=== PATIENT | male | born 1975 | race Caucasian/White ===

== ENCOUNTER 2019-03-01 09:16 | Day surgery (SDC) | payer BC, SELFPAY ==
[2019-03-01] VITALS (10 sets, daily range): BP systolic 108–150; BP diastolic 62–81; PULSE 78–94; RESP 18–20; TEMP 36.2–36.9; O2SAT 94–97; BMI 34.0
[2019-03-01 09:18] LABS: Basophils # 0.1 K/mm3 (0-0.2); Basophils % 0.5 % (0.1-2.0); Eosinophils # 0.3 K/mm3 (0.0-0.4); Eosinophils % 2.5 % (0.1-12.0); Hematocrit 41.8 % (42.0-52.0); Hemoglobin 14.4 g/dL (14.1-18.0); Lymphocytes # 2.3 K/mm3 (0.7-4.5); Lymphocytes % 21.8 % (10-50); Mean Corpuscular HGB Conc 34.4 g/dL (31.8-35.4); Mean Corpuscular Hemoglobin 30.3 pg (27.0-31.2); Mean Corpuscular Volume 87.9 fl (80-94); Monocytes # 0.6 K/mm3 (0.1-1.0); Monocytes % 5.6 % (1.7-9.3); Neutrophils # 7.3 K/mm3 (1.8-7.8); Neutrophils % 69.6 % (37.0-80.0); Platelet Count 238 K/mm3 (142-424); Red Blood Count 4.76 M/mm3 (4.60-6.20); Red Cell Distribution Width 13.3 % (11.5-17.5); White Blood Count 10.5 K/mm3 (4.8-10.8)
--- NOTE | 2019-03-01 10:18 | P.PN_ITS ---
[facility] Anesthesia Checklist - Patient Identification Patient Identification: Arm Band, Verbal (Name & ) - Structural Data Admitted From: Inpatient Planned Operative Procedure/s: Abdominal wall abscess I&D Consent for Planned Operative Procedure(s) Verified: Yes Verified Documents: Surgical Consent, History and Physical - NPO Status Verified Time NPO: 00:00 - Additional verifications Anesthesia Reactions: No - Airway Assessment C-Spine Mobility Assessed: Yes TMJ Mobility Assessed: Yes Dentition: Poor Dentition (Missing teeth, broken teeth) - Neurological Assessment Level of Consciousness: Awake Hx Seizures: No Numbness or tingling in extremities: No - Anesthesia Plan Anesthesia Risk discussed: Yes Anesthesia Plan: Verified ASA Class: II Anesthesia Type: General [facility] History I have reviewed the patient's past medical history: Yes Medical History: Reports:: Gastroesophageal Reflux Disease(GERD), Hypertension Denies:: Cancer, Diabetes Mellitus Type 1, Diabetes Mellitus Type 2, Internal Pacemaker, MRSA, Seizures *Have you ever received a pneumonia vaccine?: No *Have you received a flu vaccine this season?: No Other Medical History: Reports: Other (obesity). Denies: Blood Transfusion Reaction Other Surgeries: Yes: Hernia Repair, Other. No: Pacemaker Amputation: No Fractures: Yes - *Social History Smoking Status: Current every day smoker Tobacco Type: cigarettes # Packs/Day (cigarettes): 1 Alcohol Intake: never Alcohol Intake Frequency:: a few times a week *Occupational Status:: employed Housing: house Household Members: spouse Family Hx:: Adopted, Diabetes
--- NOTE | 2019-03-01 10:30 | P.PN_ITS ---
[facility] Anesthesia Checklist - Patient Identification Patient Identification: Arm Band, Verbal (Name & ) - Structural Data Admitted From: Inpatient Planned Operative Procedure/s: Abdominal wall abscess I&D Consent for Planned Operative Procedure(s) Verified: Yes Verified Documents: Surgical Consent, History and Physical - NPO Status Verified Time NPO: 00:00 - Additional verifications Anesthesia Reactions: No - Airway Assessment C-Spine Mobility Assessed: Yes TMJ Mobility Assessed: Yes Dentition: Poor Dentition (Missing teeth, broken teeth) - Neurological Assessment Level of Consciousness: Awake Hx Seizures: No Numbness or tingling in extremities: No - Anesthesia Plan Anesthesia Risk discussed: Yes Anesthesia Plan: Verified ASA Class: II Anesthesia Type: General [facility] History I have reviewed the patient's past medical history: Yes Medical History: Reports:: Gastroesophageal Reflux Disease(GERD), Hypertension Denies:: Cancer, Diabetes Mellitus Type 1, Diabetes Mellitus Type 2, Internal Pacemaker, MRSA, Seizures *Have you ever received a pneumonia vaccine?: No *Have you received a flu vaccine this season?: No Other Medical History: Reports: Other (obesity). Denies: Blood Transfusion Reaction Other Surgeries: Yes: Hernia Repair, Other. No: Pacemaker Amputation: No Fractures: Yes - *Social History Smoking Status: Current every day smoker Tobacco Type: cigarettes # Packs/Day (cigarettes): 1 Alcohol Intake: never Alcohol Intake Frequency:: a few times a week *Occupational Status:: employed Housing: house Household Members: spouse Family Hx:: Adopted, Diabetes
[2019-03-01 11:26] LABS: Anion Gap 15.8 mEq/L (5-15); Blood Urea Nitrogen 14 mg/dL (7-18); Calcium 9.4 mg/dL (8.5-10.1); Carbon Dioxide 27 mmol/L (21.0-32.0); Chloride 102 mmol/L (98-107); Creatinine Clearance Estimated 160 mL/min (50-200); Estimated Glomerular Filt Rate 92 ml/min (>60); GFR (African American) 111 ML/MIN (>60); Glucose 99 mg/dL (74-106); Potassium 4.8 mmoL/L (3.5-5.1); Sodium 140 mmol/L (136-145)
--- NOTE | 2019-03-01 11:58 | HMH.OPNOTE ---
Date of procedure: 03/01/19 Pre-op Diagnosis:: Left abdominal flank soft tissue infection with abscess Post-op Diagnosis:: Same Procedure performed:: Incision and drainage of complex left abdominal flank abscess with debridement of skin and subcutaneous tissues Surgeon:: Marty Smith MD BRAKE LINING MAKER:: Victor Manuel Buckley Anesthesia: LMA Estimated blood loss (mL): 25 Clinical Note:: Patient is a 43-year-old white male from [place], [place]. He states that for at least a couple of weeks he has had a knot on the left lower abdomen. He had tried to squeeze the area and did drain some foul-smelling whitish material. However it then became significantly more inflamed and tender progressively over the past week. He had presented to the urgent treatment center yesterday evening at which time he was diagnosed with abdominal wall abscess. Surgery was contacted given the fact that it likely would require incision and drainage. Plan was made for early outpatient evaluation the following morning. He was seen in the office this morning and had an area measuring approximately 15 cm of erythema with central induration without fluctuance. Plan was made for incision and drainage and debridement in the operating room. Operative findings:: This was likely consistent with abscessed sebaceous cyst. There was some caseous material within an abscess pocket with some fluid and necrotic subcutaneous tissues. Operative note:: Consent was obtained and patient was taken to the operating room. He was positioned in a supine position and general anesthesia was induced via LMA. The area was prepped and draped in the standard surgical fashion. In the central area of strongest erythema with induration 18-gauge needle was inserted. Approximately 1 cc of thick purulent material was aspirated. Incision was made at the site and there was some caseous necrotic material which exuded from the wound. Wound was probed and there was a generous pocket. However, there was not a significant amount of pus remaining. There was some tracking and undermining. The wound was opened to allow for evacuation of the purulence and necrotic material. Overlying skin and subcutaneous tissue was debrided in a limited fashion using electrocautery. Please note the cultures had been obtained during the initial incision and with the aspirated fluid. The wound was thoroughly irrigated. Hemostasis was achieved with limited use of electrocautery. Local anesthetic was infiltrated. Wound was packed with a saline moistened Kerlix gauze and covered with clean dry sterile dressing. Condition: stable Disposition: PACU Specimens:: Debrided tissue Complications:: None immediately apparent
--- NOTE | 2019-03-01 12:01 | HMH.ANESI ---
[facility] Anesthesia Record Part I Intake, IV Amount: 250 Estimated blood loss (mL): 5 Urine output (mL): 0 Blood Products used (#): none Blood Pressure: 150/81 SaO2: 96 Pulse Rate: 94 Respiratory Rate: 18 Temperature: 97.9 F Patient is:: Drowsy, Nasal O2, Stable Stable to PACU at:: 11:57
--- NOTE | 2019-03-01 12:03 | P.OP_ITS ---
Date of procedure: 03/01/19 Pre-op Diagnosis:: Left abdominal flank soft tissue infection with abscess Post-op Diagnosis:: Same Procedure performed:: Incision and drainage of complex left abdominal flank abscess with debridement of skin and subcutaneous tissues Surgeon:: Marty Smith MD PATTERN KEEPER:: Victor Manuel Buckley Anesthesia: LMA Estimated blood loss (mL): 25 Clinical Note:: Patient is a 43-year-old white male from [place], [place]. He states that for at least a couple of weeks he has had a knot on the left lower abdomen. He had tried to squeeze the area and did drain some foul-smelling whitish material. However it then became significantly more inflamed and tender progressively over the past week. He had presented to the urgent treatment center yesterday evening at which time he was diagnosed with abdominal wall abscess. Surgery was contacted given the fact that it likely would require incision and drainage. Plan was made for early outpatient evaluation the following morning. He was seen in the office this morning and had an area measuring approximately 15 cm of erythema with central induration without fluctuance. Plan was made for incision and drainage and debridement in the operating room. Operative findings:: This was likely consistent with abscessed sebaceous cyst. There was some caseous material within an abscess pocket with some fluid and necrotic subcutaneous tissues. Operative note:: Consent was obtained and patient was taken to the operating room. He was p ositioned in a supine position and general anesthesia was induced via LMA. The area was prepped and draped in the standard surgical fashion. In the central area of strongest erythema with induration 18-gauge needle was inserted. Approximately 1 cc of thick purulent material was aspirated. Incision was made at the site and there was some caseous necrotic material which exuded from the wound. Wound was probed and there was a generous pocket. However, there was not a significant amount of pus remaining. There was some tracking and undermining. The wound was opened to allow for evacuation of the purulence and necrotic material. Overlying skin and subcutaneous tissue was debrided in a limited fashion using electrocautery. Please note the cultures had been obtained during the initial incision and with the aspirated fluid. The wound was thoroughly irrigated. Hemostasis was achieved with limited use of electrocautery. Local anesthetic was infiltrated. Wound was packed with a sali ne moistened Kerlix gauze and covered with clean dry sterile dressing. Condition: stable Disposition: PACU Specimens:: Debrided tissue Complications:: None immediately apparent
--- NOTE | 2019-03-01 12:03 | P.PN_ITS ---
[facility] Anesthesia Record Part II Discharge Time: 12:27 Destination: Surgical Day Care (OP Surgery) PACU nurse assessment reviewed?: Yes Patient Condition:: Good Anesthesia Complications:: None Swallowing reflex intact?: Yes Cyanosis?: No
== END 2019-03-01 13:00 | disposition home or self-care (01) ==
LOC: OUTP 09:16
PROVIDERS: Visit Provider Surgery
PROC: (CPT 10060; principal; 2019-03-01 10:30)
DX: L02.212 Cutaneous abscess of back [any part, except buttock and flank] (principal)
CPT/HCPCS: 10060; 11000; 36415; 80048; 85025; 87070; 87075; 87205; 96374; J2405

== ENCOUNTER 2019-03-02 13:25 | Outpatient (CLI) | payer BC, SELFPAY ==
--- NOTE | 2019-03-02 16:28 | PC.NURSE ---
1335-REMOVED DRESSING AND PACKING FROM WOUND USING NS TO HELP MOISTEN PACKING WHEN REMOVING. IRRIGATED WOUND WITH NS. WOUND BED RED AND MOIST. REPACKED WITH NS MOISTEND KERLEX, COVERED WITH 2 DRY 4X4 GAUZES AND ABD PAD FOLDED IN HALF. TAPED INTO PLACE.
== END 2019-03-02 14:15 | disposition home or self-care (01) ==
LOC: INF 13:42
PROVIDERS: Visit Provider Surgery
DX: L02.91 Cutaneous abscess, unspecified (principal)
CPT/HCPCS: G0463

== ENCOUNTER 2019-03-03 10:30 | Outpatient (CLI) | payer BC, SELFPAY ==
--- NOTE | 2019-03-03 16:25 | PC.NURSE ---
1150 - INSTRUCTED TO CONTINUE COMING IN DAILY FOR WET TO DRY DRESSING CHANGES UNTIL INSURANCE APPROVES WOUND VAC. INSTRUCTED THAT WOUND VAC COMPANY WOULD CONTACT HIM ONCE APPROVED AND SEND SUPPLIES TO HIS HOUSE. INSTRUCTED TO BRING SUPPLIES TO HOSPITAL ONCE HE GETS THEM AND DUE FOR NEXT DRESSING CHANGE AND WOUND VAC COULD BE APPLIED.
== END 2019-03-03 12:10 | disposition home or self-care (01) ==
LOC: INF 10:33
PROVIDERS: Visit Provider Surgery
DX: L02.91 Cutaneous abscess, unspecified (principal); Z48.01 Encounter for change or removal of surgical wound dressing
CPT/HCPCS: G0463

== ENCOUNTER → 2019-03-04 11:24 | Outpatient (CLI) | payer BC, SELFPAY ==
[2019-03-04 11:48] VITALS: BP 116/68; PULSE 75; RESP 16; TEMP 36.6; O2SAT 98; BMI 36.0
[2019-03-04 12:07] VITALS: BP 121/70; PULSE 82; RESP 16; TEMP 36.6; O2SAT 98
== END ==
PROVIDERS: Visit Provider Surgery
DX: L02.91 Cutaneous abscess, unspecified (principal); Z48.01 Encounter for change or removal of surgical wound dressing
CPT/HCPCS: G0463

== ENCOUNTER → 2019-03-05 10:19 | Outpatient (CLI) | payer BC, SELFPAY ==
[2019-03-05 10:38] VITALS: BP 137/88; PULSE 88; RESP 16; TEMP 36.8; O2SAT 99; BMI 36.5
[2019-03-05 10:50] VITALS: BP 120/76; PULSE 80; RESP 18; TEMP 36.8; O2SAT 99
== END ==
PROVIDERS: PCP Family Medicine; Visit Provider Surgery
DX: Z48.01 Encounter for change or removal of surgical wound dressing (principal); L02.91 Cutaneous abscess, unspecified
CPT/HCPCS: G0463

== ENCOUNTER 2019-03-06 09:55 | Outpatient (CLI) | payer BC, SELFPAY | END 2019-03-06 10:59 | disposition home or self-care (01) | LOC: INF 10:01 | PROVIDERS: Visit Provider Surgery | DX: L02.91 Cutaneous abscess, unspecified (principal); Z48.01 Encounter for change or removal of surgical wound dressing | CPT/HCPCS: G0463 ==

== ENCOUNTER 2019-03-09 13:51 | Outpatient (CLI) | payer BC, SELFPAY | END 2019-03-09 14:50 | disposition home or self-care (01) | LOC: INF 13:59 | PROVIDERS: Visit Provider Surgery | DX: L02.91 Cutaneous abscess, unspecified (principal); Z48.01 Encounter for change or removal of surgical wound dressing | CPT/HCPCS: G0463 ==

== ENCOUNTER 2019-03-12 09:44 | Outpatient (CLI) | payer BC, SELFPAY ==
[2019-03-12 09:55] VITALS: BP 125/83; PULSE 79; RESP 20; O2SAT 94
[2019-03-12 09:58] VITALS: BMI 37.0
--- NOTE | 2019-03-12 13:55 | PC.NURSE ---
Addendum entered by Gem Raymond RN 03/12/19 14:07: Late entry Original Note: Dressing to wound vac removed, sterile saline applied to help remove sponge from wound bed. Pt cried, yelled, kicked and thrashed about while trying to remove. Wound was approx 5cm x 2cm and approx 1-1.5cm in depth. Bed is beefy pink with small amount of serosanguineous drainage. No odor noted. Wound cleaned w/sterile saline and new dressing applied, wound vac set to 120. Pt continued to yell and kick during cleaning wound and applying dressing. Harley Samuel RN and pt spouse at bedside trying to sooth patient during dressing change. Jo Moses RN along with Harley Samuel RN and pt spouse at bedside to help prevent pt from inadvertently kicking/hitting staff during procedure. Pt states he premedicated with prescribed prn pain meds but he did not tolerate procedure well.
== END 2019-03-12 10:35 | disposition home or self-care (01) ==
PROVIDERS: PCP Family Medicine; Visit Provider Surgery
DX: L02.91 Cutaneous abscess, unspecified (principal); Z48.01 Encounter for change or removal of surgical wound dressing
CPT/HCPCS: G0463

== ENCOUNTER 2019-03-16 09:20 | Outpatient (CLI) | payer BC, SELFPAY | END 2019-03-16 11:20 | disposition home or self-care (01) | LOC: INF 09:31 | PROVIDERS: Visit Provider Surgery | DX: Z48.01 Encounter for change or removal of surgical wound dressing (principal); L02.91 Cutaneous abscess, unspecified | CPT/HCPCS: G0463 ==

== ENCOUNTER 2023-06-30 18:22 | Emergency (ER) | payer BC, SELFPAY ==
[2023-06-30] VITALS (7 sets, daily range): BP systolic 110–142; BP diastolic 64–94; PULSE 60–70; RESP 16–18; TEMP 36.5–36.7; O2SAT 95–100; BMI 35.5; BMI 35.6
--- NOTE | 2023-06-30 18:47 | EXP.UTC ---
Discharge Plan Disposition Patient Disposition: Still a Patient Condition: Fair Prescriptions Prescriptions: No Action losartan 100 mg tablet 100 mg PO DAILY famotidine 20 mg tablet 20 mg PO DAILY cephalexin 500 MG capsule 500 mg PO TID Qty: 30 0RF Referrals Follow up/Referrals: Consuelo Shaw DO [Primary Care Provider] - See instructions Discharge ED Provider: Ld Brewer [facility] HPI General Stated complaint: h/a, cough, chest congestion Mode of Arrival: Ambulatory Source of Information: Patient Limitations: No Limitations Time Seen by Provider: 06/30/23 18:47 Description of Symptoms (Recalled from Triage Doc. by RN): Patient states he has a massive headache, double vision, ringing in ears, tightness in chest, dry cough, short of breath and just doesn't feel right at all for about 2-3 weeks. HEENT Symptoms (Recalled from RN notes): Yes Resp Symptoms (Recalled from RN notes): No Skin Symptoms (Recalled from RN notes): No MS Symptoms (Recalled from RN notes): No Functional Status (Recalled from RN notes): wnl History of Present Illness Provider Complaint: Patient states that he has had a massive headache for the last couple of days feels like a hatchet hit him between the eyes, having double vision, ringing in his ears, feeling like he has a hard time staying awake at times, tightness in his chest with dry cough but he is an everyday smoker and feels SOA at times States that for the last couple of week he just feels off and doesnt feel right in his head at all states that he has been having trouble remembering things and talks crazy at times Related Data Home Medications Medication Instructions Recorded Confirmed famotidine 20 mg tablet 20 mg PO DAILY GERD 03/01/19 04/14/19 losartan 100 mg tablet 100 mg PO DAILY bp 03/01/19 04/14/19 Previous Rx's Medication Instructions Recorded cephalexin 500 mg capsule 500 mg PO TID #30 caps 08/13/19 Allergies Allergy/AdvReac Type Severity Reaction Status Date / Time No Known Allergies Allergy Verified 08/13/19 20:15 Worker's Comp Is this a Worker's Comp case?: No [facility] Disclaimer: The information contained in this section may have been updated after the patient was seen, as this information can be updated by other users. Social History Smoking Status: Current every day smoker tobacco type: cigarettes packs per day: 1 second hand exposure: No alcohol intake: never current occupational status: employed Travel in the last 8 weeks: None household members: spouse housing: house current occupational exposures/hazards: No caffeine: No ROS Obtained: Yes All systems reviewed & no additional complaints except as documented and Yes Systems reviewed as appropriate & no additional complaints except as documented Constitutional Constitutional: Reports system reviewed and no additional complaints, except as documented, Reports as per HPI, Reports headache(s), Reports lethargy and Reports weakness ENT Ears, Nose, Mouth, and Throat: Reports system reviewed and no additional complaints, except as documented, Reports as per HPI, Reports dizziness and Reports headache(s) Cardiovascular Cardiovascular: Reports system reviewed and no additional complaints, except as documented and Reports as per HPI Respiratory Respiratory: Reports system reviewed and no additional complaints, except as documented, Reports as per HPI, Reports shortness of breath, Reports cough (dry cough), Denies stridor, Denies wheezing and Reports other (tightness in his chest on and off with dry cough) Gastrointestinal Gastrointestingal: Reports system reviewed and no additional complaints, except as documented and as per HPI Neurologic Neurologic: Reports system reviewed and no additional complaints, except as documented, Reports as per HPI, Reports dizziness, Reports headache(s), Reports other visual disturbances (reports double vision), Reports weakness and Repo
--- NOTE | 2023-06-30 19:09 | CT_ITS ---
PROCEDURE INFORMATION: Exam: CT Head Without Contrast Exam date and time: 06/30/2023 7:22 PM Age: 48 years old Clinical indication: Pain; Other: Mild confusion; Headache not specified; Additional info: Confusion, headache TECHNIQUE: Imaging protocol: Computed tomography of the head without contrast. Radiation optimization: All CT scans at this facility use at least one of these dose optimization techniques: automated exposure control; mA and/or kV adjustment per patient size (includes targeted exams where dose is matched to clinical indication); or iterative reconstruction. REPORTING DATA: Count of CT and Cardiac NM exams in prior 12 months: This patient has received 0 known CTs and 0 known cardiac nuclear medicine studies in the 12 months prior to the current study. COMPARISON: No relevant prior studies available. FINDINGS: Brain: No acute intracranial hemorrhage. No intra- or extra-axial fluid collection. No mass effect or midline shift. No evidence of acute/subacute infarct. Cerebral ventricles: No hydrocephalus. Paranasal sinuses: No air fluid levels in the visualized paranasal sinuses. Mastoid air cells: Visualized mastoid air cells are well aerated. Bones/joints: No acute calvarial or skull base fracture. Soft tissues: Unremarkable. IMPRESSION: No evidence of acute intracranial abnormality.
--- NOTE | 2023-06-30 19:11 | PC.NURSE ---
arnaldo quarles called report on pt, no open rooms at this time, notified ER MD of pt, verbal orders received from ER MD, notified [facility] staff of verbal orders by ER
--- NOTE | 2023-06-30 19:33 | ECG_ITS ---
APPROVED REPORT Exam: Resting ECG HR:62 bpm ECG Measurements Heart Rate 62 AXES TN 162 P 15 QRSd 108 QRS 21 QT 412 T 62 QTc 417 Conclusion SINUS RHYTHM INCOMPLETE RIGHT BUNDLE BRANCH BLOCK [90+ ms QRS DURATION, TERMINAL R IN V1/V2, 40+ ms S IN I/aVL/V4/V5/V6] BORDERLINE ECG UNCONFIRMED REPORT Electronically signed by : Victor Manuel Trejo MD 07/01/2023 18:33:14
[2023-06-30 20:08] LABS: Basophils # 0.1 K/mm3 (0-0.2); Basophils % 0.5 % (0.1-2.0); Eosinophils # 0.3 K/mm3 (0.0-0.4); Eosinophils % 2.6 % (0.1-12.0); Hemoglobin 15.1 g/dL (14.1-18.0); Lymphocytes % 28.9 % (10-50); Mean Corpuscular HGB Conc 33.5 g/dL (31.8-35.4); Mean Corpuscular Hemoglobin 29.7 pg (27.0-31.2); Mean Corpuscular Volume 88.7 fl (80-94); Mean Platelet Volume 8.1 fl (7.4-10.4); Monocytes # 0.6 K/mm3 (0.1-1.0); Monocytes % 5.6 % (1.7-9.3); Neutrophils # 6.5 K/mm3 (1.8-7.8); Neutrophils % 62.3 % (37.0-80.0); Platelet Count 236 K/mm3 (142-424); Red Blood Count 5.08 M/mm3 (4.60-6.20); Red Cell Distribution Width 13.4 % (11.5-17.5); White Blood Count 10.4 K/mm3 (4.8-10.8)
--- NOTE | 2023-06-30 20:08 | PC.NURSE ---
patient brought to room from [facility]
[2023-06-30 20:14] LABS: Alanine Aminotransferase 26 U/L (12-78); Albumin Level 4.8 g/dl (3.5-5.0); Albumin/Globulin Ratio 1.5 (1.1-1.8); Alkaline Phosphatase 76 U/L (38-126); Aspartate Amino Transferase 33 U/L (17-59); Bilirubin,Total 0.3 mg/dl (0.2-1.3); Blood Urea Nitrogen 15 mg/dl (9-20); Calcium 9.5 mg/dl (8.4-10.2); Carbon Dioxide 26 mmol/L (22.0-30.0); Chloride 102 mmol/L (98-107); Creatinine Clearance Estimated 145 mL/min (50-200); Estimated Glomerular Filt Rate 90 ml/min (>60); GFR (African American) 109 ML/MIN (>60); Globulin 3.2 g/dL (1.3-3.2); Glucose 107 mg/dl (74-100); Magnesium 1.9 mg/dl (1.6-2.3); Phosphorous 3.7 mg/dl (2.5-4.5); Sodium 139 mmol/L (136-145)
[2023-06-30 20:27] LABS: Troponin I < 0.01 ng/ml (0.00-0.034)
[2023-06-30 20:30] LABS: Coronavirus 19, PCR Not Detected (NotDetected); Influenza A, PCR Not Detected (NotDetected); Influenza B, PCR Not Detected (NotDetected)
--- NOTE | 2023-06-30 20:40 | XR_ITS ---
PROCEDURE INFORMATION: Exam: XR Chest Exam date and time: 06/30/2023 8:49 PM Age: 48 years old Clinical indication: Shortness of breath; Additional info: SOA TECHNIQUE: Imaging protocol: Radiologic exam of the chest. Views: 1 view. COMPARISON: No relevant prior studies available. FINDINGS: Lungs: No evidence of acute airspace consolidation. No pulmonary edema. Pleural spaces: No significant pleural effusion. No pneumothorax. Heart/Mediastinum: Cardiomediastinal silouhette is within normal limits. Bones/joints: No evidence of acute osseous abnormality. IMPRESSION: No acute findings.
--- NOTE | 2023-06-30 20:41 | PC.NURSE ---
patient had a coughing fit and spit up some mucous, pt denies any nausea at this time and just state his chest feels tight and not any actual pain
[2023-06-30 20:44] LABS: Microscopic, Urine URINE MICROSCOPIC (MICROSCOPIC)
--- NOTE | 2023-06-30 21:00 | PC.NURSE ---
during earlier coughing episode patient stated he coughed up a piece of corn
--- NOTE | 2023-06-30 21:40 | PC.NURSE ---
Patient still has IV fluids going and patient and spouse was informed we were waiting on lab work.
[2023-06-30 22:36] LABS: Appearance,Urine Clear (Clear); Bilirubin,Urine Negative (Negative); Blood, Urine Negative (Negative); Color,Urine Yellow (Yellow); Glucose,Urine (UA) Negative (Negative); Ketones,Urine Negative (Negative); Leukocyte Esterase,Urine Negative (Negative); Nitrate,Urine Negative (Negative); Protein,Urine Negative (Negative); Squamous Epithelial Cell,Urine Occasional #/hpf (0-5); Urobilinogen,Urine 0.2 EU/dl (0.2)
[2023-06-30 22:37] LABS: Mucus,Urine Trace /lpf; WBC,Urine Occasional #/hpf (0-3)
--- NOTE | 2023-07-19 16:49 | HMH.EDGENADL ---
Discharge Plan Disposition Patient Disposition: Still a Patient Condition: Fair Prescriptions Prescriptions: New codeine-guaifenesin 7.5-225 mg/5 mL liquid 4.5 ml PO Q6H PRN (Reason: cough) Qty: 473 0RF No Action losartan 100 mg tablet 100 mg PO DAILY famotidine 20 mg tablet 20 mg PO DAILY cephalexin 500 MG capsule 500 mg PO TID Qty: 30 0RF Referrals Follow up/Referrals: Consuelo Shaw DO [Primary Care Provider] - See instructions Clinical Impressions Clinical Impression: Bronchitis Stand Alone Forms Stand Alone Forms: Work/School Release Instructions Patient Instructions: DI for Altered Mental Status Discharge ED Provider: Ld Brewer General Adult HPI General Chief complaint: Altered Mental Status Stated complaint: h/a, cough, chest congestion Time Seen by Provider: 06/30/23 18:47 Mode of Arrival: Wheelchair Source of Information: Patient and Spouse Limitations: Altered Mental Status Description of Symptoms (Recalled from ER Triage Doc. by RN): pt brought patient in for chest tightness, confusion, headache, was seen at [facility] and then brought over to ER. labs had been drawn and iv started as well as ekg completed, head ct scan has been done as well and awaiting all test results History of Present Illness HPI narrative: Patient presents for evaluation of frontal nonradiating headache, intermittent confusion, nonproductive cough, gradual in onset starting several days ago, with associated congestion, no history of similar symptoms, no head injury, no known fevers or chills. No nausea or vomiting or abdominal pain. No overt chest pain. Patient denies any drug use or chronic medical issues. No previous therapies. Of note, presents as a transfer from urgent treatment center with some work-up in progress. No known aggravating or alleviating factors. Related Data Home Medications Medication Instructions Recorded Confirmed famotidine 20 mg tablet 20 mg PO DAILY GERD 03/01/19 04/14/19 losartan 100 mg tablet 100 mg PO DAILY bp 03/01/19 04/14/19 Previous Rx's Medication Instructions Recorded cephalexin 500 mg capsule 500 mg PO TID #30 caps 08/13/19 codeine 7.5 mg-guaifenesin 225 4.5 ml PO Q6H PRN cough #473 mL 06/30/23 mg/5 mL oral liquid Allergies Allergy/AdvReac Type Severity Reaction Status Date / Time No Known Allergies Allergy Verified 08/13/19 20:15 [facility] Disclaimer: The information contained in this section may have been updated after the patient was seen, as this information can be updated by other users. Social History Smoking Status: Current every day smoker tobacco type: cigarettes packs per day: 1 second hand exposure: No alcohol intake: never current occupational status: employed Travel in the last 8 weeks: None household members: spouse housing: house current occupational exposures/hazards: No caffeine: No ROS Obtained: Yes Systems reviewed as appropriate & no additional complaints except as documented Physical Exam General General appearance: alert and in no apparent distress Head Head exam: atraumatic and normocephalic Eye Eye exam: Present normal appearance Neck Neck exam: Present normal inspection Chest Chest inspection: Present normal inspection and symmetric chest wall rise Respiratory Respiratory exam: Present normal lung sounds bilaterally and other (Scattered rhonchi); Absent respiratory distress Cardiovascular Cardiovascular exam: Present regular rate and normal rhythm Abdominal Exam Abdominal exam: Present soft Neurological Exam Neurological exam: Present alert, oriented X3 and CN II-XII intact Psychiatric Psychiatric exam: Present normal affect and normal mood Skin Skin exam: Present warm and dry Medical Decision Making Medical Records Medical records reviewed: Yes I reviewed the patient's medical records. [place] Inquiry Pt receiving controlled substance: No Vital Signs:
== END 2023-06-30 22:30 | disposition home or self-care (01) ==
LOC: UTC 18:25 → ER 20:08
PROVIDERS: Emergency Provider Emergency Medicine; PCP Family Medicine
DX: R51.9 Headache, unspecified (principal); J40 Bronchitis, not specified as acute or chronic; R41.0 Disorientation, unspecified; F17.210 Nicotine dependence, cigarettes, uncomplicated; R07.89 Other chest pain
CPT/HCPCS: 70450; 71045; 80053; 81001; 83735; 84100; 84484; 85025; 87636; 93005; 99285

== ENCOUNTER 2023-09-23 18:25 | Emergency (ER) | payer SELFPAY ==
[2023-09-23 18:27] VITALS: BP 144/99; PULSE 82; RESP 18; TEMP 36.7; O2SAT 100; BMI 36.6
--- NOTE | 2023-09-23 18:32 | PC.NURSE ---
Dr. Ortiz at [facility] for pt eval
--- NOTE | 2023-09-23 18:33 | HMH.EDGENADL ---
Discharge Plan Disposition Patient Disposition: Home, Self-Care Condition: Good Chief Complaint: Upper Respiratory Infection Prescriptions Prescriptions: No Action losartan 100 mg tablet 100 mg PO DAILY famotidine 20 mg tablet 20 mg PO DAILY codeine-guaifenesin 7.5-225 mg/5 mL liquid 4.5 ml PO Q6H PRN (Reason: cough) Qty: 473 0RF cephalexin 500 MG capsule 500 mg PO TID Qty: 30 0RF Referrals Follow up/Referrals: Consuelo Shaw DO [Primary Care Provider] - See instructions Clinical Impressions Clinical Impression: COVID Instructions Patient Instructions: DI for COVID-19 (Suspected or Confirmed ) Discharge ED Provider: Araseli Ortiz General Adult HPI General Chief complaint: Upper Respiratory Infection Stated complaint: cough, body aches, da Time Seen by Provider: 09/23/23 18:29 History of Present Illness HPI narrative: Patient has a PMHx significant for HTN, DM who presents to the ED with complaints of viral symptoms. Patient notes that all day today, he has been having progressively worsening cough, congestion, fatigue, fevers, chills, body aches. Patient denies any chest pain, shortness of breath. Patient decided come in as his fatigue and bodyaches have gotten so bad that he is unable to function. Related Data Home Medications Medication Instructions Recorded Confirmed famotidine 20 mg tablet 20 mg PO DAILY GERD 03/01/19 04/14/19 losartan 100 mg tablet 100 mg PO DAILY bp 03/01/19 04/14/19 Previous Rx's Medication Instructions Recorded cephalexin 500 mg capsule 500 mg PO TID #30 caps 08/13/19 codeine 7.5 mg-guaifenesin 225 4.5 ml PO Q6H PRN cough #473 mL 06/30/23 mg/5 mL oral liquid Allergies Allergy/AdvReac Type Severity Reaction Status Date / Time No Known Allergies Allergy Verified 08/13/19 20:15 [facility] Disclaimer: The information contained in this section may have been updated after the patient was seen, as this information can be updated by other users. Social History Smoking Status: Current every day smoker tobacco type: cigarettes packs per day: 1 second hand exposure: No alcohol intake: never current occupational status: employed Travel in the last 8 weeks: None household members: spouse housing: house current occupational exposures/hazards: No caffeine: No ROS Obtained: Yes All systems reviewed & no additional complaints except as documented Physical Exam General General appearance: alert and in no apparent distress Head Head exam: atraumatic, normocephalic and normal inspection Eye Eye exam: Present normal appearance, PERRL and EOMI; Absent scleral icterus or nystagmus ENT ENT exam: Present normal exam, mucous membranes moist and normal external ear exam Neck Neck exam: Present normal inspection, full ROM and trachea midline Chest Chest inspection: Present normal inspection and symmetric chest wall rise; Absent tenderness Respiratory Respiratory exam: Present normal lung sounds bilaterally; Absent respiratory distress, wheezes or accessory muscle use Cardiovascular Cardiovascular exam: Present regular rate, normal rhythm and normal heart sounds Abdominal Exam Abdominal exam: Present soft; Absent distention, tenderness, guarding, rebound, rigidity, trauma, ascites or pulsatile mass exam: Present deferred Extremities Exam Extremities exam: Present normal inspection and full ROM; Absent tenderness Back Exam Back exam: Present normal inspection and full ROM; Absent tenderness Neurological Exam Neurological exam: Present alert, oriented X3, normal gait and motor sensory deficit Psychiatric Psychiatric exam: Present normal affect and normal mood Skin Skin exam: Present warm, dry and normal color Medical Decision Making Medical Records Medical records reviewed: Yes I reviewed the patient's medical records. [place] Inquiry Pt receiving controlled substance: No Vital Signs: 09/23/23 18:27 Tem
[2023-09-23 18:47] LABS: Influenza A, PCR Not Detected (NotDetected); Influenza B, PCR Not Detected (NotDetected)
--- NOTE | 2023-09-23 19:04 | ECG_ITS ---
APPROVED REPORT Exam: Resting ECG HR:76 bpm ECG Measurements Heart Rate 76 AXES NH 150 P 47 QRSd 105 QRS 46 QT 351 T 73 QTc 382 Conclusion SINUS RHYTHM INCOMPLETE RIGHT BUNDLE BRANCH BLOCK [90+ ms QRS DURATION, TERMINAL R IN V1/V2, 40+ ms S IN I/aVL/V4/V5/V6] BORDERLINE ECG UNCONFIRMED REPORT Electronically signed by : Victor Manuel Trejo MD 09/24/2023 08:52:43
[2023-09-23 19:14] LABS: Coronavirus 19, PCR Detected (NotDetected)
[2023-09-23 19:27] VITALS: BP 114/68; PULSE 87; RESP 18; TEMP 37.1; O2SAT 97
== END 2023-09-23 19:29 | disposition home or self-care (01) ==
PROVIDERS: Emergency Provider Emergency Medicine; PCP Family Medicine
DX: U07.1 COVID-19 (principal); R05.9 Cough, unspecified; R50.9 Fever, unspecified; F17.210 Nicotine dependence, cigarettes, uncomplicated
CPT/HCPCS: 87636; 93005; 99283; 99284